=== PATIENT | female | born 1960 | race African-American/Black ===

== ENCOUNTER 2017-06-11 09:25 | Emergency (ER) | payer MEDICAID ==
[~2017-06-11] VITALS: Ht 149.9 cm; Wt 58.3 kg
[2017-06-11] MEDS ORDERED: SODIUM CHLORIDE FLUSH 10ML SYR IVF ONE (10:00)
[2017-06-11 10:11] LABS: HEMATOCRIT 41.3 % (34.6-47.8); HEMOGLOBIN 14.4 g/dL (11.7-16.4); WHITE BLOOD COUNT 4.5 x10^3/uL (3.4-10)
[2017-06-11 10:22] LABS: BLOOD UREA NITROGEN 5 mg/dL (7-18)
[2017-06-11 10:23] LABS: ASPARTATE AMINO TRANSFERASE 86 U/L (15-37)
[2017-06-11] MEDS ORDERED: SODIUM CHLORIDE 0.9% 1,000ML IVBOLUS ONE (10:30)
[2017-06-11] MEDS ORDERED: OMNIPAQUE 350 MG/ML, 100ML BOTTLE ONE (10:46)
[2017-06-11 12:07] VITALS: BP 139/95
== END 2017-06-11 12:56 | disposition home or self-care (01) ==
LOC: ED 10:10
DX: R04.2 Hemoptysis (principal); R91.1 Solitary pulmonary nodule; E11.65 Type 2 diabetes mellitus with hyperglycemia; Z91.14 Patient's other noncompliance with medication regimen; Z86.11 Personal history of tuberculosis
CPT/HCPCS: 36415; 71250; 71275; 80053; 85025; 93005; 96360; 96361; 99285; J7030; Q9967

== ENCOUNTER 2017-11-23 09:55 | Inpatient (IN) | payer MEDICAID ==
[~2017-11-23] VITALS: Ht 149.9 cm; Wt 52.8 kg
[2017-11-23 10:44] LABS: BASOPHILS # (AUTO) 0.01 x10^3/uL (0-0.1); BASOPHILS % (AUTO) 0 % (0-1); EOSINOPHILS # (AUTO) 0.08 x10^3/uL (0-0.4); EOSINOPHILS % (AUTO) 2 % (1-7); LYMPHOCYTES # (AUTO) 1.05 x10^3/uL (1-3.4); LYMPHOCYTES % (AUTO) 24 % (22-44); MD NO; MEAN CORPUSCULAR HEMOGLOBIN 28.4 pg (27.0-34.8); MEAN CORPUSCULAR HGB CONC 33.5 g/dL (32.4-35.8); MEAN CORPUSCULAR VOLUME 84.8 fL (80-100); MEAN PLATELET VOLUME 8.5 fL (7.4-10.4); MONOCYTES % (AUTO) 11 % (2-9); NEUTROPHILS # (AUTO) 2.84 x10^3/uL (1.8-6.8); NEUTROPHILS % (AUTO) 63 % (42-75); PLATELET COUNT 209 x10^3/uL (130-400); RED BLOOD COUNT 3.97 x10^6/uL (3.82-5.3); RED CELL DISTRIBUTION WIDTH 14.6 % (9.6-15.2)
[2017-11-23 10:55] LABS: ANION GAP 13 mmol/L (5-15); CALCIUM 8.9 mg/dL (8.5-10.1); CHLORIDE 93 mmol/L (98-107); CREATININE 1.02 mg/dL (0.55-1.02)
[2017-11-23] MEDS ORDERED: SODIUM CHLORIDE 0.9% 1,000 ML IV ONE (11:04)
[2017-11-23] MEDS ORDERED: VANCOMYCIN PMX 1GM/200ML 200 ML IV ONE (11:30)
[2017-11-23] MEDS ORDERED: SODIUM CHLORIDE 0.9% 1,000ML IVBOLUS ONE (11:30)
[2017-11-23] MEDS ORDERED: VANCOMYCIN PER PHARMACY MC ONE (11:30)
[2017-11-23] MEDS ORDERED: SODIUM CHLORIDE FLUSH 10ML SYR IVF ONE (11:30)
[2017-11-23] MEDS ORDERED: PIPERACILLIN/TAZO/PMX 3.375GM 50 ML IVPB ONE (11:30)
[2017-11-23 11:40] LABS: ACETONE, SERUM Large (80mg/dL) mg/dL (Negative)
[2017-11-23 11:45] LABS: CLUE CELLS NONE SEEN (NONE SEEN); WET PREP WBCS NONE SEEN (FEW)
[2017-11-23] MEDS ORDERED: PIPERACILLIN/TAZO/PMX 3.375GM 50 ML ONE (11:48)
[2017-11-23] MEDS ORDERED: FLUCONAZOLE 100 MG TABLET PO ONE (12:00)
[2017-11-23] MEDS ORDERED: SODIUM CHLORIDE FLUSH 10ML SYR IVF PRN (12:30)
[2017-11-23] MEDS ORDERED: INSULIN REGULAR 100 UNITS/ML, 3ML VIAL SQ-INSULIN ONE (13:30)
[2017-11-23] MEDS ORDERED: INSULIN REGULAR 100 UNITS/ML, 3ML VIAL ONE (13:30)
[2017-11-23 14:10] VITALS: BP 149/82
[2017-11-23] MEDS: SODIUM CHLORIDE 0.9% 1,000 ML IV SCH ×2 (15:37→21:44)
[2017-11-23] MEDS ORDERED: D5%-0.45% NACL 1,000 ML IV SCH (15:43)
[2017-11-23] MEDS ORDERED: DOCUSATE 100 MG CAPSULE PO PRN (16:00)
[2017-11-23] MEDS ORDERED: ONDANSETRON 2MG/ML, 2ML IVPush PRN (16:00)
[2017-11-23] MEDS ORDERED: OXYcodone IR 5MG TABLET PO PRN (16:00)
[2017-11-23] MEDS ORDERED: hydrALAzine 20 MG/ML, 1ML IVPush PRN (16:00)
[2017-11-23 16:35] LABS: HEMOGLOBIN A1C 13.3 % (4.2-6.3)
[2017-11-23] MEDS: LISINOPRIL 5 MG TABLET PO SCH (17:47)
[2017-11-23] MEDS: FLUCONAZOLE 200 MG TABLET PO SCH (17:47)
[2017-11-23] MEDS: ENOXAPARIN 40 MG/0.4 ML SQ SCH (17:47)
[2017-11-23] MEDS: INSULIN GLARGINE 100 UNITS/ML, PEN SQ-INSULIN SCH (17:48)
[2017-11-23] MEDS: INSULIN LISPRO 100 UNITS/ML, PEN SQ-INSULIN SCH ×2 (17:48→21:55)
[2017-11-23 18:36] LABS: MICROSCOPIC AUTO
[2017-11-23 18:48] LABS: CULTURE INDICATED? YES
[2017-11-23 21:26] VITALS: BP 119/84
[2017-11-23] MEDS: PIPERACILLIN/TAZO/PMX 3.375GM 50 ML IV SCH (21:44)
[2017-11-24 02:34] VITALS: BP 99/61
[2017-11-24] MEDS: PIPERACILLIN/TAZO/PMX 3.375GM 50 ML IV SCH ×4 (03:06→20:56)
[2017-11-24] MEDS: SODIUM CHLORIDE 0.9% 1,000 ML IV SCH (04:48)
[2017-11-24 05:30] LABS: BASOPHILS # (AUTO) 0.01 x10^3/uL (0-0.1); BASOPHILS % (AUTO) 0 % (0-1); EOSINOPHILS # (AUTO) 0.09 x10^3/uL (0-0.4); EOSINOPHILS % (AUTO) 2 % (1-7); LYMPHOCYTES # (AUTO) 1.11 x10^3/uL (1-3.4); LYMPHOCYTES % (AUTO) 24 % (22-44); MD NO; MEAN CORPUSCULAR HEMOGLOBIN 28.3 pg (27.0-34.8); MEAN CORPUSCULAR HGB CONC 33.2 g/dL (32.4-35.8); MEAN CORPUSCULAR VOLUME 85.4 fL (80-100); MONOCYTES # (AUTO) 0.51 x10^3/uL (0.2-0.8); MONOCYTES % (AUTO) 11 % (2-9); NEUTROPHILS # (AUTO) 2.99 x10^3/uL (1.8-6.8); NEUTROPHILS % (AUTO) 64 % (42-75); PLATELET COUNT 173 x10^3/uL (130-400); RED BLOOD COUNT 3.59 x10^6/uL (3.82-5.3); RED CELL DISTRIBUTION WIDTH 15.3 % (9.6-15.2)
[2017-11-24 05:48] LABS: CHLORIDE 107 mmol/L (98-107)
[2017-11-24 06:00] LABS: ANION GAP 8 mmol/L (5-15); CALCIUM 7.7 mg/dL (8.5-10.1); CHOL/HDL RATIO 3.8; CHOLESTEROL, TOTAL 53 mg/dL (140-239); CREATININE 0.62 mg/dL (0.55-1.02); HDL CHOL % 26 % (28-40); HDL CHOLESTEROL (DIRECT) 14 mg/dL (40-60); LDL CHOLESTEROL,CALCULATED 16 mg/dL (54-169); LDL/HDL RATIO 1.1 (0.5-3.0); TRIGLYCERIDES 113 mg/dL (50-200); VLDL CHOLESTEROL 23 mg/dL (0-25)
[2017-11-24 07:28] VITALS: BP 120/71
[2017-11-24] MEDS: LISINOPRIL 5 MG TABLET PO SCH (07:49)
[2017-11-24] MEDS: POTASSIUM CHLORIDE 20 MEQ TAB.ER.PRT PO SCH ×2 (07:49→12:02)
[2017-11-24] MEDS: INSULIN LISPRO 100 UNITS/ML, PEN SQ-INSULIN SCH ×4 (07:49→20:57)
[2017-11-24] MEDS: FLUCONAZOLE 200 MG TABLET PO SCH (07:50)
[2017-11-24 14:44] VITALS: BP 113/80
[2017-11-24] MEDS: ENOXAPARIN 40 MG/0.4 ML SQ SCH (15:36)
[2017-11-24 18:39] VITALS: BP 132/87
[2017-11-24] MEDS: INSULIN GLARGINE 100 UNITS/ML, PEN SQ-INSULIN SCH (20:56)
[2017-11-25 02:58] VITALS: BP 112/73
[2017-11-25] MEDS: PIPERACILLIN/TAZO/PMX 3.375GM 50 ML IV SCH ×2 (02:58→08:40)
[2017-11-25 06:46] VITALS: BP 117/77
[2017-11-25] MEDS: INSULIN LISPRO 100 UNITS/ML, PEN SQ-INSULIN SCH ×2 (07:17→12:10)
[2017-11-25] MEDS: LISINOPRIL 5 MG TABLET PO SCH (08:39)
[2017-11-25] MEDS: FLUCONAZOLE 200 MG TABLET PO SCH (08:40)
[2017-11-25] MEDS ORDERED: FLUC200T PO (11:46)
[2017-11-25] MEDS ORDERED: LISI5TAB7 PO (11:46)
[2017-11-25] MEDS ORDERED: INSU100I13 SQ-INSULIN (11:46)
[2017-11-25] MEDS ORDERED: INSULIN GLARGINE 100 UNITS/ML, PEN SQ-INSULIN SCH (21:00)
== END 2017-11-25 12:21 | disposition left against medical advice (07) | DRG 638 ==
LOC: ED 11:36 → EDIP 12:09 → 4NOR 13:50
PROVIDERS: ADMIT Hospitalist; ATTEND Hospitalist
DX: E11.65 Type 2 diabetes mellitus with hyperglycemia (principal); E87.1 Hypo-osmolality and hyponatremia; B37.3 Candidiasis of vulva and vagina; D25.0 Submucous leiomyoma of uterus; F15.90 Other stimulant use, unspecified, uncomplicated; F17.200 Nicotine dependence, unspecified, uncomplicated; I10 Essential (primary) hypertension; Z79.899 Other long term (current) drug therapy; Z80.8 Family history of malignant neoplasm of other organs or systems; Z86.11 Personal history of tuberculosis; Z91.11 Patient's noncompliance with dietary regimen; Z91.19 Patient's noncompliance with other medical treatment and regimen; Z90.49 Acquired absence of other specified parts of digestive tract
CPT/HCPCS: 36415; 71046; 76830; 80048; 80061; 81001; 82010; 82040; 82947; 82962; 83036; 83605; 83735; 84100; 85025; 87040; 87077; 87086; 87186; 87210; 87491; 87591; 87808; J1650; J2543; J3370; J1815; J7030